=== PATIENT | male | born 1965 | race Caucasian/White ===

== ENCOUNTER 2020-11-19 10:17 | Emergency (ER) | payer OTHER ==
[~2020-11-19] VITALS: Ht 170.2 cm; Wt 102.1 kg
[2020-11-19 11:00] LABS: BASOPHILS % 0.2 % (0.0-1.0); HEMOGLOBIN 12.5 g/dL (14.0-18.0); LYMPHOCYTES # (AUTO) 0.9 (1.0-3.2); LYMPHOCYTES % 13.6 % (18.0-39.1); MEAN CORPUSCULAR HGB CONC 33.8 g/dL (31-35); MEAN CORPUSCULAR VOLUME 88.9 fL (81-99); MONOCYTES # (AUTO) 0.1 (0.2-0.8); MONOCYTES % 1.6 % (4.4-11.3); NEUTROPHILS # (AUTO) 5.3 (2.1-6.9); PLATELET COUNT 125 x10e3/uL (140-360); RED BLOOD COUNT 4.16 x10e6/uL (4.3-5.7)
[2020-11-19 11:46] LABS: ALBUMIN 3.3 g/dL (3.5-5.0); ALBUMIN/GLOBULIN RATIO 0.9 (0.8-2.0); ANION GAP 11.6 mmol/L (8-16); CALCIUM 7.4 mg/dL (8.4-10.2); CREATININE, SERUM 1.25 mg/dL (0.72-1.25); POTASSIUM 3.6 mmol/L (3.5-5.1)
[2020-11-19] MEDS ORDERED: CASIRIVIMAB/IMDEVIMAB 10 ML in SODIUM CHLORIDE 0.9% 100 ML IV ONE (12:00)
== END 2020-11-19 12:54 | disposition home or self-care (01) ==
LOC: ER 10:33
DX: U07.1 COVID-19 (principal); R50.9 Fever, unspecified; R05.9 Cough, unspecified
CPT/HCPCS: 36415; 71045; 80053; 84484; 85025; 93005; 99283; J7050; U0002